=== PATIENT | male | born 1960 | race American Indian/Alaskan Native ===

== ENCOUNTER 2019-01-04 09:23 | Emergency (ER) | payer BC ==
[~2019-01-04] VITALS: Ht 177.8 cm; Wt 86.2 kg
[2019-01-04] MEDS ORDERED: PERCOCET 5-3251 EACH PO (09:36)
[2019-01-04] MEDS ORDERED: ONDANSETRON ODT8 MG PO (09:36)
[2019-01-04] MEDS ORDERED: OMEPRAZOLE40 MG PO (09:36)
[2019-01-04] MEDS ORDERED: ENULOSE10 GM/15 M PO (11:56)
== END 2019-01-04 12:04 | disposition home or self-care (01) ==
LOC: ED 09:23
DX: K59.00 Constipation, unspecified (principal); F17.200 Nicotine dependence, unspecified, uncomplicated; Z90.49 Acquired absence of other specified parts of digestive tract; Z88.8 Allergy status to other drugs, medicaments and biological substances; Z79.899 Other long term (current) drug therapy
CPT/HCPCS: 74022; 80053; 81001; 83690; 85025; 96361; 96374; 99283-25; J2405; J7030